=== PATIENT | female | born 1975 | race Two or more races ===

== ENCOUNTER 2016-03-06 13:55 | Emergency (ER) | payer SELFPAY ==
[2016-01-31 05:02] VITALS: BP 107/57
[~2016-03-06 13:55] MED LIST: POLY17PO5 PO
== END 2016-03-06 15:43 | disposition left against medical advice (07) ==
LOC: ER 13:55
DX: M54.5 Low back pain (principal); Z53.21 Procedure and treatment not carried out due to patient leaving prior to being seen by health care provider

== ENCOUNTER 2016-09-11 18:13 | Emergency (ER) | payer SELFPAY ==
[2016-01-31 05:02] VITALS: BP 107/57
[~2016-09-11 18:13] MED LIST changes: +POLY17PO29 PO; -POLY17PO5 PO
[2016-09-11] MEDS ORDERED: DICL50TA4 PO (18:56)
[2016-09-11] MEDS ORDERED: METH4TAB2 PO (18:56)
[2016-09-11] MEDS ORDERED: CYCL10TA2 PO (18:56)
--- NOTE | 2016-09-11 18:56 | PHYS DOC ---
Past Medical History Past Medical History: No Pertinent History Past Surgical History: No Surgical History Alcohol Use: None Drug Use: None Adult General Chief Complaint Chief Complaint: LOWER BACK PAIN OR INJURY HPI HPI Patient is a 41 year old [place]-speaking female with no significant medical history who presents today with low back pain that began 3 days ago. No known injury. Patient denies the pain radiating to bilateral lower extremities. Denies any loss of bowel bladder function, she states the pain is worse on movement. Patient states she has had similar pain before and got pain medicine. Patient denies any urinary symptoms. 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 Review of Systems Review of Systems Constitutional: Denies fever or chills [] Eyes: Denies change in visual acuity, redness, or eye pain [] GI: See history of present illness : Denies dysuria or hematuria [] Musculoskeletal: low back pain Integument: Denies rash or skin lesions [] Neurologic: Denies headache, focal weakness or sensory changes [] Endocrine: Denies polyuria or polydipsia [] Allergies Allergies Allergies Coded Allergies Type Severity Reaction Last Updated Verified No Known Drug Allergies 01/31/16 No Physical Exam Physical Exam Constitutional: Well developed, well nourished, no acute distress, non-toxic appearance. [] HENT: Normocephalic, atraumatic, bilateral external ears normal, oropharynx moist, no oral exudates, nose normal. [] Eyes: PERRLA, EOMI, conjunctiva normal, no discharge. [] Abdomen: Bowel sounds normal, soft, no tenderness, no masses, no pulsatile masses. [] Skin: Warm, dry, no erythema, no rash. [] Back: Diffuse paraspinal muscle tenderness to bilateral lumbar region no midline tenderness, no CVA tenderness. [] Extremities: No tenderness, no cyanosis, no clubbing, ROM intact, no edema. [] Neurologic: Alert and oriented X 3, normal motor function, normal sensory function, no focal deficits noted. [] Psychologic: Affect normal, judgement normal, mood normal. [] Current Patient Data Vital Signs Vital Signs Date Time Temp Pulse Resp B/P (MAP) Pulse Ox O2 Delivery O2 Flow Rate FiO2 09/11/16 18:22 98.7 84 20 97 Room Air 98.7 EKG EKG [] Radiology/Procedures Radiology/Procedures [] Course & Med Decision Making Course & Med Decision Making Pertinent Labs and Imaging studies reviewed. (See chart for details) This is a 41-year-old female patient who presents to the ED with low back pain no known injury. Patient has no urinary symptoms. She states she has history of similar back pain before. She was given prescription for diclofenac, Medrol Dosepak, and Flexeril. She was instructed to follow-up with a primary care doctor and from the provided doctor's list. Provided her return precautions and discharged in stable condition. Dragon Disclaimer Dragon Disclaimer This electronic medical record was generated, in whole or in part, using a voice recognition dictation system. Departure Departure Impression: Primary Impression: Back pain Disposition: HOME, SELF-CARE Condition: STABLE Referrals: NO PCP (PCP) follow up with a doctor from the list provided in one week Patient Instructions: Back Pain, Adult Additional Instructions: You were seen for back pain. Follow-up with the primary care doctor from the list provided as soon as you can. Scripts Cyclobenzaprine Hcl (CYCLOBENZAPRINE HCL) 10 Mg Tablet 1 TAB PO TID, #30 TAB Prov: PATRICIA IBRAHIM APRN 09/11/16 Methylprednisolone (MEDROL) 4 Mg Tab.ds.pk 1 PKG PO UD, #1 PKG Prov: PATRICIA IBRAHIM APRN 09/11/16 Diclofenac Sodium (DICLOFENAC SODIUM) 50 Mg Tablet.dr 1 TAB PO BID, #60 TAB 1 Refill Prov: PATRICIA IBRAHIM APRN 09/11/16 Problem Qualifiers Primary Impression: Back pain Back pain location: low back pain Chronicity: acute Back pain laterality: bilateral Sciatica presence: without sciatica Qualified Codes: M54.5 - Low back pain PATRICIA IBRAHIM APRN Sep 11, 2016 18:56
== END 2016-09-11 18:59 | disposition home or self-care (01) ==
LOC: ER 18:13
DX: M54.5 Low back pain (principal)
CPT/HCPCS: 99283

== ENCOUNTER 2017-06-06 22:18 | Emergency (ER) | payer OTHER | END 2017-06-06 23:18 | disposition home or self-care (01) | LOC: ER 22:18 | DX: M54.42 Lumbago with sciatica, left side (principal); G89.29 Other chronic pain | CPT/HCPCS: 99283 ==

== ENCOUNTER 2018-04-04 20:22 | Emergency (ER) | payer OTHER ==
[2017-06-06 22:41] VITALS: BP 116/55
[~2018-04-04] VITALS: Ht 162.6 cm; Wt 56.7 kg
[~2018-04-04 20:22] MED LIST changes: +CYCL10TA2 PO; +DICL50TA4 PO; +METH4TAB2 PO
[2018-04-04] MEDS: HYDROcodone/APAP 5/325MG 1 TAB TABLET PO ONE (20:53)
[2018-04-04] MEDS ORDERED: AMOX500C PO (21:28)
[2018-04-04] MEDS ORDERED: HYDR-3164 PO (21:28)
--- NOTE | 2018-04-04 21:28 | PHYS DOC ---
Past Medical History Past Medical History: No Pertinent History Past Surgical History: No Surgical History Alcohol Use: None Drug Use: None Adult General Chief Complaint Chief Complaint: DENTAL PROBLEM HPI HPI Patient is a 42 year old [f__sex] who presents with [] Review of Systems Review of Systems Constitutional: Denies fever or chills [] Eyes: Denies change in visual acuity, redness, or eye pain [] HENT: Denies nasal congestion or sore throat [] Respiratory: Denies cough or shortness of breath [] Cardiovascular: No additional information not addressed in HPI [] GI: Denies abdominal pain, nausea, vomiting, bloody stools or diarrhea [] : Denies dysuria or hematuria [] Musculoskeletal: Denies back pain or joint pain [] Integument: Denies rash or skin lesions [] Neurologic: Denies headache, focal weakness or sensory changes [] Endocrine: Denies polyuria or polydipsia [] All other systems were reviewed and found to be within normal limits, except as documented in this note. Current Medications Current Medications Current Medications Medications (Trade) Dose Ordered Sig/Tsering Start Time Stop Time Status Last Admin Dose Admin Acetaminophen/ Hydrocodone Bitart (Lortab 5/325) 1 tab 1X ONCE 04/04/18 21:00 04/04/18 21:01 DC 04/04/18 20:53 1 TAB Allergies Allergies Allergies Coded Allergies Type Severity Reaction Last Updated Verified No Known Drug Allergies 01/31/16 No Physical Exam Physical Exam Constitutional: Well developed, well nourished, no acute distress, non-toxic appearance. [] HENT: Normocephalic, atraumatic, bilateral external ears normal, oropharynx moist, no oral exudates, nose normal. [] Eyes: PERRLA, EOMI, conjunctiva normal, no discharge. [] Neck: Normal range of motion, no tenderness, supple, no stridor. [] Cardiovascular:Heart rate regular rhythm, no murmur [] Lungs & Thorax: Bilateral breath sounds clear to auscultation [] Abdomen: Bowel sounds normal, soft, no tenderness, no masses, no pulsatile masses. [] Skin: Warm, dry, no erythema, no rash. [] Back: No tenderness, no CVA tenderness. [] Extremities: No tenderness, no cyanosis, no clubbing, ROM intact, no edema. [] Neurologic: Alert and oriented X 3, normal motor function, normal sensory function, no focal deficits noted. [] Psychologic: Affect normal, judgement normal, mood normal. [] Current Patient Data Vital Signs Vital Signs Date Time Temp Pulse Resp B/P (MAP) Pulse Ox O2 Delivery O2 Flow Rate FiO2 04/04/18 20:53 16 98 Room Air 04/04/18 20:26 98.6 106 96/59 (71) 98.6 EKG EKG [] Radiology/Procedures Radiology/Procedures [] Course & Med Decision Making Course & Med Decision Making Pertinent Labs and Imaging studies reviewed. (See chart for details) [] Dragon Disclaimer Dragon Disclaimer This electronic medical record was generated, in whole or in part, using a voice recognition dictation system. Departure Departure Impression: Primary Impression: Fractured tooth Disposition: HOME, SELF-CARE Condition: STABLE Referrals: NO PCP (PCP) Patient Instructions: Tooth Fracture Additional Instructions: Use the medications as directed. Do not drive or operate heavy machinery while taking pain medication. Follow-up with a dentist at first available appointment or return to the emergency department if worsening. Scripts Hydrocodone/Apap 5-325 (NORCO 5-325 TABLET) 1 Each Tablet 1 TAB PO PRN Q6HRS PRN for PAIN, #14 TAB 0 Refills Prov: RAFAEL ESWELL APRN 04/04/18 Amoxicillin (AMOXICILLIN) 500 Mg Capsule 2 CAP PO BID for dental infection, #40 CAP Prov: RAFAEL SEWELL APRN 04/04/18 RAFAEL SEWELL APRN Apr 04, 2018 21:28
== END 2018-04-04 21:31 | disposition home or self-care (01) ==
LOC: ER 20:22
DX: S02.5XXA Fracture of tooth (traumatic), initial encounter for closed fracture (principal); X58.XXXA Exposure to other specified factors, initial encounter; Y93.89 Activity, other specified; Y92.89 Other specified places as the place of occurrence of the external cause; Y99.8 Other external cause status
CPT/HCPCS: 99283